=== PATIENT | female | born 1990 | race Two or more races ===

== ENCOUNTER 2020-03-25 07:16 | Day surgery (SDC) | payer BC ==
[~2020-03-25] VITALS: Ht 177.8 cm; Wt 68.0 kg
[2020-03-25] VITALS (10 sets, daily range): BP systolic 117–131; BP diastolic 58–78
--- NOTE | 2020-03-25 06:49 | Immediate Post-Op Evaluation ---
Immediate Post-Op Evalulation Immediate Post-Op Evalulation Procedure: Bilateral Mastectomy with Nipple Reconstruction Date of Evaluation: Mar 25, 2020 Time of Evaluation: 11:29 IV Fluids: 900 LR Blood Products: 0 Estimated Blood Loss: 50 Urinary Output: 0 Blood Pressure Systolic: 120 Blood Pressure Diastolic: 58 Pulse Rate: 97 Respiratory Rate: 16 O2 Sat by Pulse Oximetry: 100 Temperature (Fahrenheit): 97.7 Pain Score (1-10): 2 Nausea: No Vomiting: No Complications 0 Patient Status: awake, reacts, patent, extubated, none Hydration Status: adequate Dru Gram Ancvef IV Given Within 1 Hr of Incision: Yes Time Given: 08:11 Marcin Parrish MD Mar 25, 2020 06:49
[~2020-03-25 07:16] MED LIST: Acetaminophen (Non formulary) 100 ML IV ONE; Atropine Sulfate 0.4mg/ml inj IVP PRN; Bacitracin Oint 15gm Tube TOPIC ONE; Bupivacaine 0.25% Inj 30ml INJ ONE; DiphenhydrAMINE 50mg/ml Inj IVP PRN; HYDROcodone/Acetamin 5/325 tab ORAL PRN; HYDROcodone/Acetamin 7.5/325 tab ORAL PRN; Hydromorphone 0.5mg/0.5ml inj IVP PRN; Ketorolac 30mg Inj IV PRN; LORazepam Inj 2mg/ml 1ml IV PRN; LR 1000ml 1,000 ML IVLG SCH; LR 1000ml ONE; Labetalol 5mg/ml 20ml vial IV PRN; Lidocaine 1% MPF 10mg/ml 5ml ONE; Lidocaine 1% Plain 30 ml INJ ONE; Lidocaine 1%/ 10mg/ml/EPI 0.01mg/ml 20ml INJ ONE; Meperidine 25mg/1ml Inj (FOR RIGORS ONLY) IV PRN; Metoclopramide 10mg/2ml Inj IVP PRN; Midazolam 2mg/2ml Inj IVP PRN; Muri-Lube ONE; Sodium Chloride 10ml vial INJ ONE; ceFAZolin sod 2 GM in NS 55 ML IVPB ONE; fentaNYL 100 mcg/2 mL IV ONE; fentaNYL 100 mcg/2 mL IV PRN; oxyCODONE HCL/Acetaminophen 5/325mg ORAL PRN; propofoL 1,000mg/100ml IV ONE
[2020-03-25] MEDS ORDERED: Dyna-Hex 2% Top Sol 2oz TOPIC ONE (07:18)
--- NOTE | 2020-03-25 07:45 | Anethesia Preoperative Eval ---
Anesthesia Pre-op PMH/ROS General Date of Evaluation: Mar 25, 2020 Time of Evaluation: 07:51 Anesthesiologist: Francois ASA Score: ASA 2 Mallampati Score Class I : Soft palate, uvula, fauces, pillars visible Class II: Soft palate, uvula, fauces visible Class III: Soft palate, base of uvula visible Class IV: Only hard plate visible Mallampati Classification: Class I Surgeon: Harrison Diagnosis: Gender Dysphoria Surgical Procedure: Bilateral Mastectomy with Nipple Reconstruction Anesthesia History: none Family History: no anesthesia problems Allergies: Coded Allergies: No Known Allergies (Unverified , 03/24/20) Medications: see eMAR Patient NPO?: Yes Anesthesia Pre-op Phys. Exam Physician Exam Constitutional: NAD Neurologic: CN 2-12 intact Cardiovascular: RRR Respiratory: CTA Gastrointestinal: S/NT/ND Airway Exam Mallampati Score: Class I MO: limited ROM: limited Teeth: intact Anesthesia Pre-op A/P Risk Assessment & Plan Assessment: ASA 2 Plan: GA, SED, GlideScope Status Change Before Surgery: No Pre-Antibiotics Dru Gram Ancef IV Given Within 1 Hr of Incision: Yes Time Given: 08:11 Marcin Parrish MD Mar 25, 2020 07:45
[2020-03-25] MEDS ORDERED: TESTOSTERO100 MG/1 M IM (07:46)
[2020-03-25] MEDS ORDERED: ESCITALOPRAM OX10 MG ORAL (07:46)
[2020-03-25] MEDS ORDERED: Rocuronium Bromide 50mg/5ml Inj IV ONE (07:54)
--- NOTE | 2020-03-25 07:54 | Pre-Procedure Note/Attestation ---
Pre-Procedure Note/Attestation Complete Prior to Procedure Planned Procedure: bilateral Procedure Narrative: bilateral mastectomy and nipple areola reconstruction Indications for Procedure Pre-Operative Diagnosis: gender dysphoria Attestation I attest that I discussed the nature of the procedure; its benefits; risks and complications; and alternatives (and the risks and benefits of such a lternatives), prior to the procedure, with the patient (or the patient's legal personal banking representative). I attest that, if there was a reasonable possibility of needing a blood transfusion, the patient (or the patient's legal personal banking representative) was given the [facility] standardized written summary, pursuant to the James Tereso Blood Safety Act ([place] Health and Safety Code # 1645, as amended). I attest that I re-evaluated the patient just prior to the surgery and that there has been no change in the patient's H&P, except as documented below: Art Terry MD Mar 25, 2020 07:54
[2020-03-25] MEDS ORDERED: NS Irrig 1000ml IRRIG ONE ×3 (08:01→08:31)
--- NOTE | 2020-03-25 08:05 | 48 Hour Post Anesthesia Eval ---
Post Anesthesia Evaluation Procedure: Bilateral Mastectomy with Nipple Reconstruction Date of Evaluation: Mar 25, 2020 Time of Evaluation: 13:43 Blood Pressure Systolic: 117 0: 64 Pulse Rate: 81 Respiratory Rate: 18 Temperature (Fahrenheit): 98 O2 Sat by Pulse Oximetry: 100 Airway: patent Nausea: No Vomiting: No Pain Intensity: 2 Hydration Status: adequate Cardiopulmonary Status: Stable Mental Status/LOC: patient returned to baseline Follow-up Care/Observations: 0 Post-Anesthesia Complications: 0 Follow-up care needed: ready to discharge Marcin Parrish MD Mar 25, 2020 08:05
[2020-03-25] MEDS ORDERED: Lidocaine 1% MPF 10mg/ml 5ml ONE (09:53)
--- NOTE | 2020-03-25 11:07 | Operative Note - PDOC ---
Operative Note Operative Note Date of Operation/Procedure: Mar 25, 2020 Pre-op Diagnosis: gender dysphoria Procedure: bilateral mastectomy and nipple areola reconstruction Post-op Diagnosis: same as pre-op Surgeon: Harrison Anesthesiologist: Francois Anesthesia: general Specimen: yes Complications: none Condition: stable Estimated Blood Loss: minimal Drains: TORY Implant(s) used?: No Art Terry MD Mar 25, 2020 11:07
--- NOTE | 2020-03-25 11:09 | Discharge Instructions ---
Discharge Instructions Discharge Instructions Follow up with: Dr. Terry 03/31/20, appointment already made Diet: regular Resume Normal Activity?: Yes - no lifting anything heavier than 10 lbs Activity: ambulate For Surgical Patients Dressing Care: keep dry and clean May shower: No - sponge bathe only For Congestive Heart Failure Reminder Report to your physician any weight gain of 5 pounds or more in one week. Art Terry MD Mar 25, 2020 11:08
[2020-03-25] MEDS ORDERED: HYDROcodone/Acetamin 5/325 tab ORAL PRN (11:15)
[2020-03-25] MEDS ORDERED: Tylenol #3 tab (300mg/30mg) ORAL PRN (11:15)
[2020-03-25] MEDS ORDERED: HYDROmorphone 1mg/ml Carpuject SUBQ PRN (11:15)
--- NOTE | 2020-03-25 13:00 | Operative Note - Dictated ---
DATE OF OPERATION: 03/25/2020 PREOPERATIVE DIAGNOSIS: Gender dysphoria. POSTOPERATIVE DIAGNOSIS: Gender dysphoria. PROCEDURE: 1. Bilateral mastectomy. 2. Bilateral nipple areola reconstruction utilizing full-thickness grafts (each graft 2.5 x 2.5 cm). SURGEON: Art Terry MD. ANESTHESIA: General. ESTIMATED BLOOD LOSS: Minimal. SPECIMENS: 1. Right breast. 2. Left breast. DRAINS: A 15-Upper Sorbian Cuco x2. COMPLICATIONS: None. CONDITION TO RECOVERY ROOM: Stable. INDICATION FOR PROCEDURE: This is a very pleasant 29-year-old trans male who desires top surgery as part of his transition to alleviate his gender dysphoria. He has the appropriate letter for recommendation from his mental health therapist and meets all WPATH criteria for top surgery. I have discussed the risks, benefits, and alternatives to the procedure with him including, but not limited to, bleeding, infection, scarring, nerve injury, asymmetry, contour deformity, hematoma, seroma, loss of nipple sensation, loss of nipple graft and need for additional surgery including revisions. I discussed the orientation of the incisions and the unpredictable nature of scarring. No guarantees were made regarding the outcome. All of his questions have been answered to the best of my ability. He verbalized understanding with everything that we discussed and wishes to proceed. DESCRIPTION OF PROCEDURE: The patient was identified in the preoperative holding area and marked in the standing position. He was then brought to the operating room where he was placed in the supine position on the operating room table with his arms extended on arm boards. All bony prominences were adequately padded. Sequential compression devices were placed and intravenous antibiotics were administered. After induction of anesthesia, the patient's chest was prepped and draped in sterile fashion. Starting on the left breast first, a white earth measuring 2.5 cm in diameter was drawn centered around the nipple. Next, the subdermal plane within the areolar marking was infiltrated with 4 mL of 1% lidocaine with epinephrine. I then used a 15 blade scalpel to incise the areolar marking and proceeded to harvest a full-thickness nipple areola graft. The graft was subsequently defatted using curved iris scissors, wrapped in wet gauze and placed on the back table. I then made the inframammary fold incision using a 10 blade scalpel and dissected down to the level of the pectoralis major fascia. Afterwards, I then made the superior breast incision using a 10 blade scalpel and dissected down to the level of Mike's fascia. Skin Rakes were used to retract the skin and a plane of dissection was created superiorly between the subcutaneous tissues and breast parenchyma. Afterwards, the breast parenchyma was then elevated off of the pectoralis major fascia proceeding from a medial to lateral direction. The specimen was then passed off the table. Hemostasis was achieved and the wound was irrigated with saline. A 5 mL of FloSeal was then placed throughout the wound cavity for hemostatic effect. A 15-Upper Sorbian Cuco drain was then placed within the wound and brought out through a separate stab incision and secured using 2-0 silk suture. Skin brian were then used to temporarily reapproximate the skin. I then shifted my attention to the contralateral side of the chest where the identical procedure was performed. The patient was then sat up on the operating room table to assess for symmetry and it appeared that he had very reasonable symmetry between the two sides of his chest. I then used a marking pen to draw out the proposed new location of the nipple areola complex on each side of the chest and these markings were confirmed using direct measurements. The patient was then placed back in the supine position. On each side of the chest, the skin brian were removed and wound closure was performed using interrupted 0 Vicryl suture for the Mike's fascia layer followed by interrupted 3-0 PDS suture for the deep dermal layer and then a running 3-0 Monocryl subcuticular suture to reapproximate the skin. At this point, I then resumed with the nipple areola reconstruction portion of the procedure. Starting on the left chest first, the efrain areolar marking was incised using a 15 blade scalpel. The intervening skin within the markings was then de-epithelialized. I then brought out the full-thickness nipple areola graft and proceeded to inset it into the de-epithelialized area using a running 5-0 fast-absorbing suture. Afterwards, several 2-0 suture ties were placed around the periphery of the graft. The skin graft bolster was fashioned and secured into place directly on top of the nipple areola graft using the 2-0 silk suture ties. I then shifted my attention to the contralateral side of the chest where the identical procedure was performed. Afterwards, 10 mL of 0.25% plain Marcaine were injected into each of the chest incisions. Steri-Strips were placed on top of the surgical incisions followed by sterile dressings and the patient was then placed into a compressive chest strap. He tolerated the procedure well and was sent to the recovery room in stable condition. All instrument, sharp, and sponge counts were correct at the conclusion of the case. Art Terry M.D. DR: HERMAN JOB#: [id number] CC: [email or web address]
[2020-03-25] MEDS ORDERED: D5 1/2NS 1,000 ML IV SCH (15:00)
== END 2020-03-25 13:20 | disposition home or self-care (01) ==
LOC: SUR 07:16
DX: F64.9 Gender identity disorder, unspecified (principal)
CPT/HCPCS: 19303; 19350; 81025; 94003; J0131; J0690; J1100; J2001; J2250; J2405; J2704; J3010; J3490; J7120; U0004; 94150